=== PATIENT | female | born 2000 | race Caucasian/White ===

== ENCOUNTER 2023-08-09 07:40 | Emergency (ER) | payer SELFPAY ==
[2023-08-09 07:43] VITALS: BP 122/86
[2023-08-09] MEDS: TESSALON PERLES 200 MG PO (09:04)
[2023-08-09] MEDS: DUONEB 3 ML INH (09:05)
[2023-08-09] MEDS: DELTASONE 50 MG PO (09:05)
--- NOTE | 2023-08-09 09:24 | ED.GENMED ---
History of Present Illness
General
Chief Complaint: Cough
Source: patient
Exam Limitations: none
Time Seen by Provider: 08/09/23 08:41
Nursing documentation reviewed up to this point in time: agreed with
Travel History
Have you had any contact with someone who has COVID-19?: No
Do you have any symptoms of coronavirus? Fever > 100 degrees, chills, cough, shortness of breath, sore throat, loss of taste or smell, muscle aches, or headache?: No
History of Present Illness
History of Present Illness:
Patient presents to ED secondary to persistent cough with shortness of breath over the past 2 weeks. Patient has history of asthma but has run out of inhaler due to lack of insurance. Denies fever or chills. Denies nausea, vomiting, or diarrhea.
Patient currently works at daycare. Denies chest pain. Denies loss of appetite. Denies recent travel or surgery.
Review of Systems
Review of Systems
Allergies reviewed?: Yes
All Other Systems: ROS reviewed and negative except as documented in HPI and ROS
Constitutional: Reports no symptoms; Denies fever
EENT: Reports other (Nasal congestion)
Respiratory: Reports cough and trouble breathing
Cardiac: Reports no symptoms
ABD/GI: Reports no symptoms
: Reports no symptoms
Musculoskeletal: Reports no symptoms
Skin: Reports no symptoms
Neurological: Reports no symptoms
Phy Exam
Physical Exam
Physical Exam:
Physical Exam
General: no apparent distress, not acutely ill. afebrile
Head: nc/at. eomi
Neck: supple. no meningeal signs.
Heart: s1/s2 regular rate and rhythm, no murmur. equal radial pulses.
Lungs: no acute respiratory distress. diminished breath sound over right lower base with faint expiratory wheezing.
Abdomen: normal bowel sounds. not tender.
Neuro: alert and oriented. no focal neurological deficits
Skin: no rash
Psychiatric: well kept. interactive and cooperative
Extremities: no edema. no calf tenderness.
Course
Orders/Labs/Results
Orders:
Orders
08/09/23 08:50
Benzonatate [Tessalon Perles] 200 mg PO NOW STA
Ipratropium/Albuterol Sulfate [Duoneb] 3 ml INH R NOW ONE
Prednisone [Deltasone] 50 mg PO NOW STA
CR Chest - 2 Views Urgent
Comment:
Reason For Exam: cough/sob
08/09/23 09:04
COVID-19 Antigen Urgent
Source: Nasal Swab
Abnormal Lab Results
08/09/23
09:04
SARS-CoV-2 Antigen Positive A
(Negative)
Vital Signs
Initial and Last Documented VS:
Initial Vital Signs
Temp Pulse Resp BP Pulse Ox
98.4 F 104 18 122/86 98
08/09/23 07:43 08/09/23 07:43 08/09/23 07:43 08/09/23 07:43 08/09/23 07:43
Last Documented Vital Signs
Temp Pulse Resp BP Pulse Ox
98.4 F 92 20 119/85 98
08/09/23 07:43 08/09/23 10:05 08/09/23 10:05 08/09/23 10:05 08/09/23 10:05
MDM/Problems Addressed
MDM/Problems Addressed:
History and exam, along with COVID-19 testing, consistent with likely asthma exacerbation secondary to COVID-19 infection. Otherwise, patient is afebrile, hemodynamically stable, and is without acute respiratory distress. Patient will be treated
symptomatically with short course of prednisone as well as inhaler along with cough medication. Chest x-ray without any acute findings.
*Critical Care Note
Total Time (30-74mins, 75-104mins- exclusive of procedures): Not Applicable
ED Attending Note
-
Portions of this chart may have been created with voice recognition software.� Occasional wrong word or��sound alike� substitutions may have occurred due to the inherent limitations of voice recognition software.
Discharge Plan
Departure
Patient Disposition: Home (Routine Discharge)
Date of Disposition: 08/09/23
Time of Disposition: 10:24
Patient with high blood pressure during this ER visit?: Yes
Condition: Good
Covid-19: Confirmed COVID-19
Discharge Problem:
COVID-19, Asthma
Instructions: Asthma, Adult (DC), COVID-19 (DC)
Prescriptions:
New
albuterol sulfate [ProAir HFA] 90 mcg/actuation Hfa Aerosol Inhaler
2 puff INHALATION Q4HPRN PRN (Reason: shortness of breath) Qty: 8.5 0RF
prednisone 50 mg Tablet
50 mg PO DAILY Qty: 3 0RF
benzonatate 100 mg capsule
100 mg PO TID PRN (Reason: Cough) Qty: 20 0RF
Referrals:
[facility] [Outside]
NONE,* [Family Provider] -
Stand Alone Forms: Return to Work
Activity Restrictions/Additional Instructions:
As discussed, please follow-up with your primary care physician and/or referred medical clinic for reevaluation. Your prescription has been sent electronically to [facility] pharmacy in [place].
Interventions
Interventions:
*Risk Screen - Suicide Last Done: 08/09/23 09:30
*General Assessment Last Done: 08/09/23 09:30
*Neglect/Abuse Screening Last Done: 08/09/23 09:30
*ED COVID-19 Vaccine History Last Done: 08/09/23 09:30
*Nursing Disposition Last Done: 08/09/23 10:36
ED- Pulmonary Assessment Last Done: 08/09/23 09:30
Discharge Date and Time
Discharge Date/Time: 08/09/23 10:36
[2023-08-09 09:28] LABS: COVID-19 Antigen Positive (Negative)
[2023-08-09 10:05] VITALS: BP 119/85
== END 2023-08-09 10:36 | disposition home or self-care (01) ==
LOC: EMR 07:40
PROVIDERS: EMERGENCY PHYSICIAN Emergency Medicine
DX: U07.1 COVID-19 (principal); J45.909 Unspecified asthma, uncomplicated
CPT/HCPCS: 99283; 94640; 71046; 87811

== ENCOUNTER 2023-09-13 08:25 | Emergency (ER) | payer SELFPAY ==
[2023-09-13 08:33] VITALS: BP 144/105
--- NOTE | 2023-09-13 08:58 | ED.GENMED ---
History of Present Illness
General
Chief Complaint: Cough
Source: patient
Exam Limitations: none
Time Seen by Provider: 09/13/23 08:40
Travel History
Have you had any contact with someone who has COVID-19?: No
Do you have any symptoms of coronavirus? Fever > 100 degrees, chills, cough, shortness of breath, sore throat, loss of taste or smell, muscle aches, or headache?: No
History of Present Illness
History of Present Illness:
See MDM
Past History
Past History
ED Past Medical History: Asthma
Social History
Tobacco: Non-smoker
Alcohol: None
Phy Exam
Physical Exam
Physical Exam:
See MDM
Course
Orders/Labs/Results
Orders:
Orders
09/13/23 08:43
Dexamethasone Pf [Decadron] 10 mg PO NOW STA
Ipratropium/Albuterol Sulfate [Duoneb] 3 ml INH R NOW STA
Test Result ONCE
09/13/23 08:44
CR Chest - 2 Views Urgent
Comment:
Reason For Exam: SOB, cough
09/13/23 09:11
HCG, Urine Qualitative Screen Urgent
Date Specimen was Collected: 09/13/23
Time Specimen was Collected: 09:10
Urinalysis Reflex To Culture Urgent
Date Specimen was Collected: 09/13/23
Time Specimen was Collected: 09:10
Urine Microscopic Reflex Cult Urgent
Urine Culture Urgent
IRENE Source: U
Specimen Description:
Date Specimen was Collected: 09/13/23
Time Specimen was Collected: 09:10
09/13/23 10:28
Doxycycline [Vibramycin] 100 mg PO NOW STA
Abnormal Lab Results
09/13/23
09:11
Ur Occult Blood Reflex 1+ A
(Negative)
Urine RBC 3-6 A /HPF
(0-2)
Urine Bacteria (Reflex) Moderate A
(Negative)
Vital Signs
Initial and Last Documented VS:
Initial Vital Signs
Temp Pulse Resp BP Pulse Ox
98.1 F 77 18 144/105 98
09/13/23 08:33 09/13/23 08:33 09/13/23 08:33 09/13/23 08:33 09/13/23 08:33
Last Documented Vital Signs
Temp Pulse Resp BP Pulse Ox
98.1 F 77 18 144/105 98
09/13/23 08:33 09/13/23 08:33 09/13/23 08:33 09/13/23 08:33 09/13/23 08:33
MDM/Problems Addressed
Differential Diagnosis Includes:
HPI and MDM Narrative:
22-year-old female presenting with shortness of breath and cough. Symptoms have been ongoing since she was diagnosed with COVID 1 month ago. She does have a history of asthma which is well-controlled with albuterol as needed. Patient also
complaining of abdominal pain. She points to her suprapubic region. She denies urinary symptoms. Symptoms are worse when she coughs.
Given her symptoms, will obtain chest x-ray. Will obtain urinalysis. The abdominal pain is likely musculoskeletal pain referred from coughing. Her abdominal exam is very benign. Given duration of abdominal pain with how well-appearing she is,
doubt acute surgical or infectious pathology
Physical exam
General: Well appearing and non-toxic
HEENT: protecting airway
Neck: appears supple
CV: No evidence of cyanosis
Resp: No accessory muscle use. Mild expiratory wheezing
Abd: Non-distended. Mild suprapubic tenderness. No rebound
Extremities: No deformities
Neuro: alert
Psych: Normal affect
Skin: Intact
Problems Addressed including Acute and Chronic Conditions affecting care:
1. Shortness of breath
Acuity: acute
Prognosis: stable
Details: Likely asthma exacerbation exacerbated by viral infection. Will obtain chest x-ray. Patient given DuoNeb and Decadron
Updates
Radiology indicating possible right lower lobe pneumonia. Will start doxycycline
Differential Diagnosis (but not limited to): Asthma exacerbation, UTI, pneumonia
Testing considered: Pelvic ultrasound
Drug therapy (if applicable): OTC meds, please see d/c instruction regarding Rx drugs
Amount and/or Complexity of Data Reviewed
Clinical info obtained from: Patient
External data reviewed: N/A
Labs I independently reviewed (but not limited to): UA
Radiology: X-ray independently reviewed: Questionable right lower lobe pneumonia
Pulse Ox: not hypoxic
EKG independently reviewed: N/A
Bacteriologist Pharmaceutical: N/A
Critical Care: N/A
Risk of Complication:
Social Determinants of health: Good social support
Discussed with other providers: N/A
Escalation of Care includes Admit/Obs: After being observed in the Emergency Department, pt stable for discharge.
Occasional wrong word or 'sound a like' substitutions may have occurred due to the inherent limitations of voice recognition software. Read the chart carefully and recognize, using context, where substitutions have occurred.
*Critical Care Note
Total Time (30-74mins, 75-104mins- exclusive of procedures): Not Applicable
ED Attending Note
-
Portions of this chart may have been created with voice recognition software.� Occasional wrong word or��sound alike� substitutions may have occurred due to the inherent limitations of voice recognition software.
Discharge Plan
Departure
Patient Disposition: Home (Routine Discharge)
Date of Disposition: 09/13/23
Time of Disposition: 10:30
Patient with high blood pressure during this ER visit?: Yes
Discharge Problem:
PNA (pneumonia), Acute bronchitis
Instructions: Pneumonia, Adult (DC), BLOOD PRESSURE
Prescriptions:
New
doxycycline hyclate 100 mg capsule
100 mg PO BID Qty: 14 0RF
fluticasone propionate 110 mcg/actuation HFA aerosol inhaler
1 inh inhalation Q12H Qty: 12 0RF
famotidine [Pepcid] 20 mg tablet
20 mg PO DAILY Qty: 30 0RF
No Action
albuterol sulfate [ProAir HFA] 90 mcg/actuation Hfa Aerosol Inhaler
2 puff INHALATION Q4HPRN PRN (Reason: shortness of breath) Qty: 8.5 0RF
prednisone 50 mg Tablet
50 mg PO DAILY Qty: 3 0RF
benzonatate 100 mg capsule
100 mg PO TID PRN (Reason: Cough) Qty: 20 0RF
Referrals:
NONE,* [Family Provider] -
Stand Alone Forms: Return to Work
Activity Restrictions/Additional Instructions:
Please return for any worsening symptoms.
You may return at any time if you have further concerns.
Please follow up with your doctor at the first available appointment, preferably this week.
Thank you for choosing [facility].
Interventions
Interventions:
*Risk Screen - Suicide Last Done: 09/13/23 08:33
*General Assessment Last Done: 09/13/23 08:33
*Neglect/Abuse Screening Last Done: 09/13/23 08:33
[2023-09-13] MEDS: DUONEB 3 ML INH (09:13)
[2023-09-13] MEDS: DECADRON 10 MG PO (09:14)
[2023-09-13 09:25] LABS: Urine Albumin Negative (Neg - Trace); Urine Bilirubin Negative (Negative); Urine Character Clear (Clear); Urine Color Yellow; Urine Glucose Negative (Negative); Urine Ketone Negative (Negative); Urine Leukocyte Negative (Negative); Urine Nitrite Negative (Negative); Urine Occult Blood 1+ (Negative); Urine Specific Gravity 1.025 (<1.030); Urine Urobilinogen Negative (Neg - 1+)
[2023-09-13 09:33] LABS: Urine Squamous Cell >30 /LPF (Few)
[2023-09-13 09:36] LABS: Urine Bacteria Moderate (Negative)
[2023-09-13 09:48] LABS: HCG, Urine Qualitative Screen Negative
[2023-09-13 10:00] VITALS: BP 125/85
[2023-09-13] MEDS: VIBRAMYCIN 100 MG PO (10:34)
== END 2023-09-13 10:47 | disposition home or self-care (01) ==
LOC: EMR 08:25
PROVIDERS: EMERGENCY PHYSICIAN Student in an Organized Health Care Education/Training Program
DX: J18.9 Pneumonia, unspecified organism (principal); J20.9 Acute bronchitis, unspecified; R03.0 Elevated blood-pressure reading, without diagnosis of hypertension; J45.909 Unspecified asthma, uncomplicated
CPT/HCPCS: 99284; 94640; 71046; 81003; 81015; 81025; 87086

== ENCOUNTER 2023-10-04 08:25 | Emergency (ER) | payer SELFPAY ==
[2023-10-04 08:26] VITALS: BP 136/96
[2023-10-04 09:10] VITALS: BMI 30.4
--- NOTE | 2023-10-04 09:17 | ED.GENMED ---
History of Present Illness
General
Chief Complaint: Cold/Flu/URI Symptoms
Source: patient
Exam Limitations: none
Time Seen by Provider: 10/04/23 09:09
Travel History
Have you had any contact with someone who has COVID-19?: No
Do you have any symptoms of coronavirus? Fever > 100 degrees, chills, cough, shortness of breath, sore throat, loss of taste or smell, muscle aches, or headache?: No
History of Present Illness
History of Present Illness:
22-year-old female presents with chest pain shortness of breath and wheeze and cough. Occasionally she coughs up blood. She was here twice in the past 2 months had bronchitis and pneumonia and asthma. She was treated with antibiotics however
symptoms persist. She notes at times she feels that she has trouble completing a sentence. There is been no vomiting. No recent fever. No other complaints at this time
Past History
Past History
ED Past Medical History: Asthma
Social History
Tobacco: Non-smoker
Alcohol: None
Phy Exam
Physical Exam
Physical Exam:
General: Well-appearing female no acute respiratory distress
HEENT: Normocephalic atraumatic posterior pharynx without erythema neck is supple no adenopathy
Heart: Regular rate and rhythm no murmurs
Lungs: Wheeze upon inspiration rhonchi noted as well
Extremities: No cyanosis or edema
Skin: Warm no rash
Course
Orders/Labs/Results
Orders:
Orders
10/04/23 09:15
Ipratropium/Albuterol Sulfate [Duoneb] 3 ml INH R NOW ONE
10/04/23 09:16
CT Chest Pe Study Urgent
Comment:
Reason For Exam: sob, chest pain
Test Result ONCE
10/04/23 09:22
Complete Blood Count/With Diff Urgent
Comprehensive Metabolic Panel Urgent
HCG, Serum Qualitative Screen Urgent
10/04/23 11:07
Cefdinir [Omnicef] 300 mg PO NOW STA
Abnormal Lab Results
10/04/23
09:22
Creatinine 0.5 L mg/dL
(0.6-1.0)
10/04/23 09:22
10/04/23 09:22
Vital Signs
Initial and Last Documented VS:
Initial Vital Signs
Temp Pulse Resp BP Pulse Ox
97.9 F 100 18 136/96 100
10/04/23 08:26 10/04/23 08:26 10/04/23 08:26 10/04/23 08:26 10/04/23 08:26
Last Documented Vital Signs
Temp Pulse Resp BP Pulse Ox
97.9 F 88 19 125/92 99
10/04/23 08:26 10/04/23 11:09 10/04/23 11:09 10/04/23 11:09 10/04/23 11:09
MDM/Problems Addressed
Differential Diagnosis Includes:
Chest pain shortness of breath cough and wheeze. Consider recurrent asthma exacerbation versus PE versus recurrent pneumonia. Will try DuoNeb. Given hemoptysis and pleuritic pain, will order PE study.
*Critical Care Note
Total Time (30-74mins, 75-104mins- exclusive of procedures): Not Applicable
Update Note
Update Note:
CT is negative for pulmonary embolism but demonstrates pneumonia at the left base with surrounding bronchitis. Prior pneumonia on the right side is now resolved. Will treat with Omnicef and Zithromax. She is not hypoxic. White count is normal
with no respiratory distress. Penicillin is listed as an allergy on her and is nausea. She did receive a dose of Omnicef here and was observed for over 40 minutes and is without any symptoms.
ED Attending Note
-
Portions of this chart may have been created with voice recognition software.� Occasional wrong word or��sound alike� substitutions may have occurred due to the inherent limitations of voice recognition software.
Discharge Plan
Departure
Patient Disposition: Home (Routine Discharge)
Date of Disposition: 10/04/23
Time of Disposition: 11:54
Patient with high blood pressure during this ER visit?: No
Discharge Problem:
Pneumonia
Prescriptions:
New
cefdinir 300 mg capsule
300 mg PO BID Qty: 14 0RF
azithromycin [Zithromax] 250 mg tablet
250 mg PO DAILY Qty: 6 0RF
Rx Instructions:
Take 2 tablets on day 1. Then one tablet on days 2-5.
albuterol sulfate 2.5 mg /3 mL (0.083 %) solution for nebulization
2.5 mg inhalation QID PRN (Reason: bronchospasm) Qty: 75 0RF
No Action
albuterol sulfate [ProAir HFA] 90 mcg/actuation Hfa Aerosol Inhaler
2 puff INHALATION Q4HPRN PRN (Reason: shortness of breath) Qty: 8.5 0RF
prednisone 50 mg Tablet
50 mg PO DAILY Qty: 3 0RF
benzonatate 100 mg capsule
100 mg PO TID PRN (Reason: Cough) Qty: 20 0RF
doxycycline hyclate 100 mg capsule
100 mg PO BID Qty: 14 0RF
fluticasone propionate 110 mcg/actuation HFA aerosol inhaler
1 inh inhalation Q12H Qty: 12 0RF
famotidine [Pepcid] 20 mg tablet
20 mg PO DAILY Qty: 30 0RF
Referrals:
NONE,* [Family Provider] -
Activity Restrictions/Additional Instructions:
Take antibiotics as directed. Use nebulizer as needed for wheezing. Please return here for worsening symptoms otherwise follow-up with family
Interventions
Interventions:
*Risk Screen - Suicide Last Done: 10/04/23 09:10
*General Assessment Last Done: 10/04/23 09:10
*Neglect/Abuse Screening Last Done: 10/04/23 09:10
*ED COVID-19 Vaccine History Last Done: 10/04/23 09:10
ED- Pulmonary Assessment Last Done: 10/04/23 09:12
[2023-10-04] MEDS: DUONEB 3 ML INH (09:26)
[2023-10-04 09:30] LABS: % Basophils 0.7 % (0-2); % Eosinophils 2.4 % (0-6); % Immature Granulocytes 0.2 % (0-0.5); % Monocytes 6.5 % (1.7-9.3); % Neutrophils 63.2 % (42.2-75.2); Absolute Basophils 0.1 10^3/uL (0-0.2); Absolute Eosinophils 0.2 10^3/uL (0-0.7); Absolute Lymphocytes 2.3 10^3/uL (1.2-3.4); Absolute Monocytes 0.6 10^3/uL (0.1-0.6); Absolute Neutrophils 5.3 10^3/uL (1.4-6.5); Hematocrit 41.1 % (37.0-47.0); Hemoglobin 13.9 g/dL (12.0-16.0); Mean Corp Hgb Conc. 33.8 g/dL (33.0-37.0); Mean Corpuscular Hgb 29.8 pg (27.0-31.0); Nucleated Red Blood Cells % 0 %; Platelet Count 322 10^3/uL (130-400); Red Blood Cell Count 4.67 10^6/uL (4.20-5.40); Red Cell Dist. Width 11.8 % (11.5-14.5); White Blood Cell Count 8.4 10^3/uL (4.8-10.8)
[2023-10-04 09:40] LABS: HCG, Serum Qualitative Screen Negative
[2023-10-04 09:42] LABS: ALT (SGPT) 23 U/L (0-35); AST (SGOT) 25 U/L (14-36); Albumin 4.8 g/dl (3.5-5.0); Alkaline Phosphatase 91 U/L (38-126); Blood Urea Nitrogen 9 mg/dl (7-17); Carbon Dioxide 27 mmol/L (22-30); Chloride 104 mmol/L (98-107); Estimated Creatinine Clearance > 125 ml/min; Glucose 96 mg/dl (70-99); Potassium 4.2 mmol/L (3.5-5.1); Sodium 139 mmol/L (135-145); Total Bilirubin 0.9 mg/dl (0.2-1.3); Total Protein 8.2 g/dl (6.3-8.2); eGFR > 60.00
[2023-10-04 11:09] VITALS: BP 125/92
[2023-10-04] MEDS: OMNICEF 300 MG PO (11:15)
== END 2023-10-04 12:29 | disposition home or self-care (01) ==
LOC: EMR 08:25
PROVIDERS: Physician Assistant; EMERGENCY PHYSICIAN Emergency Medicine
DX: R07.89 Other chest pain (principal); J45.909 Unspecified asthma, uncomplicated; J18.9 Pneumonia, unspecified organism; Z86.16 Personal history of COVID-19
CPT/HCPCS: 99284; 71275; 80053; 84703; 85025; Q9967

== ENCOUNTER 2023-12-29 09:47 | Emergency (ER) | payer SELFPAY ==
[2023-12-29 09:49] VITALS: BP 154/96
[2023-12-29] MEDS: DECADRON 10 MG PO (10:28)
[2023-12-29] MEDS: DUONEB 3 ML INH (10:28)
--- NOTE | 2023-12-29 10:42 | ED.GENMED ---
History of Present Illness
General
Chief Complaint: Cough
Source: patient
Exam Limitations: none
Time Seen by Provider: 12/29/23 09:58
Nursing documentation reviewed up to this point in time: agreed with
Travel History
Have you had any contact with someone who has COVID-19?: No
Do you have any symptoms of coronavirus? Fever > 100 degrees, chills, cough, shortness of breath, sore throat, loss of taste or smell, muscle aches, or headache?: Yes
Symptoms:: cough
History of Present Illness
History of Present Illness:
23-year-old female past medical history of asthma presenting to the emergency department today with concerns of cough shortness of breath congestion ongoing over the past few weeks and not resolving using her inhaler at home without relief. Denies
any specific fevers chest pain. Had COVID a few months ago as well.
Past History
Past History
ED Past Medical History: Asthma
Social History
Tobacco: Non-smoker
Alcohol: None
Review of Systems
Review of Systems
Allergies reviewed?: Yes
All Other Systems: ROS reviewed and negative except as documented in HPI and ROS
Phy Exam
Physical Exam
Physical Exam:
GENERAL: Alert , in no apparent distress
EYE: pupils equal and reactive
NECK: Supple, no significant adenopathy.
ENT: o/p clr, mmm.
CARDIAC: Regular rate and rhythm .
LUNGS: Diffuse inspiratory and expiratory wheezing.
ABDOMEN: Soft, without focal tenderness, no r/g, no cvat
NEUROLOGICAL: Alert and oriented, no focal neuro deficits
SKIN: Warm and dry, skin intact.
MUSCULOSKELETAL: No edema, well perfused.
PSYCH: Normal and appropriate interaction.
Course
Orders/Labs/Results
Orders:
Orders
12/29/23 10:20
Dexamethasone [Decadron] 10 mg PO NOW STA
Ipratropium/Albuterol Sulfate [Duoneb] 3 ml INH R NOW ONE
Chest [CR Chest - 2 Views ] Urgent
Comment:
Reason For Exam: cough
Vital Signs
Initial and Last Documented VS:
Initial Vital Signs
Temp Pulse Resp BP Pulse Ox
98.3 F 99 18 154/96 99
12/29/23 09:49 12/29/23 09:49 12/29/23 09:49 12/29/23 09:49 12/29/23 09:49
Last Documented Vital Signs
Temp Pulse Resp BP Pulse Ox
98.3 F 99 18 154/96 99
12/29/23 09:49 12/29/23 09:49 12/29/23 09:49 12/29/23 09:49 12/29/23 09:49
MDM/Problems Addressed
MDM/Problems Addressed:
23-year-old female presenting to the emergency department today with concerns of cough shortness of breath wheeze over the past few weeks. Has not been on steroids recently but did have intermittent symptoms since having COVID a few months ago.
Here she has diffuse inspiratory expiratory wheeze but good pulse ox of 99% and normal respiratory rate. She was able to speak with full sentences. Patient claims symptoms improved after receiving steroids and DuoNeb. X-ray without signs of
emergent pathology or pneumonia. Patient appears stable for discharge return precautions given.
*Critical Care Note
Total Time (30-74mins, 75-104mins- exclusive of procedures): Not Applicable
ED Attending Note
-
Portions of this chart may have been created with voice recognition software.� Occasional wrong word or��sound alike� substitutions may have occurred due to the inherent limitations of voice recognition software.
Discharge Plan
Departure
Patient Disposition: Home (Routine Discharge)
Date of Disposition: 12/29/23
Time of Disposition: 12:41
Patient with high blood pressure during this ER visit?: No
Condition: Good
Covid-19: Not Applicable
Discharge Problem:
Asthma exacerbation
Instructions: Asthma, Adult ED
Prescriptions:
New
prednisone 20 mg tablet
40 mg PO DAILY 4 Days Qty: 8 0RF
albuterol sulfate 2.5 mg /3 mL (0.083 %) solution for nebulization
2.5 mg inhalation Q4H PRN (Reason: bronchospasm) Qty: 90 0RF
No Action
albuterol sulfate [ProAir HFA] 90 mcg/actuation Hfa Aerosol Inhaler
2 puff INHALATION Q4HPRN PRN (Reason: shortness of breath) Qty: 8.5 0RF
prednisone 50 mg Tablet
50 mg PO DAILY Qty: 3 0RF
benzonatate 100 mg capsule
100 mg PO TID PRN (Reason: Cough) Qty: 20 0RF
doxycycline hyclate 100 mg capsule
100 mg PO BID Qty: 14 0RF
fluticasone propionate 110 mcg/actuation HFA aerosol inhaler
1 inh inhalation Q12H Qty: 12 0RF
famotidine [Pepcid] 20 mg tablet
20 mg PO DAILY Qty: 30 0RF
cefdinir 300 mg capsule
300 mg PO BID Qty: 14 0RF
azithromycin [Zithromax] 250 mg tablet
250 mg PO DAILY Qty: 6 0RF
Rx Instructions:
Take 2 tablets on day 1. Then one tablet on days 2-5.
albuterol sulfate 2.5 mg /3 mL (0.083 %) solution for nebulization
2.5 mg inhalation QID PRN (Reason: bronchospasm) Qty: 75 0RF
Referrals:
NONE,* [Family Provider] -
Activity Restrictions/Additional Instructions:
You came to the emergency department today with concerns of continued breathing issues. You are found to have wheezing. Please take the steroid as prescribed and follow close with your primary care doctor. Return to the emergency department for
any worsening, new or concerning symptoms.
Interventions
Interventions:
*Risk Screen - Suicide Last Done: 12/29/23 09:49
*General Assessment Last Done: 12/29/23 09:49
*Neglect/Abuse Screening Last Done: 12/29/23 09:49
*ED COVID-19 Vaccine History Last Done: 12/29/23 10:33
ED- Pulmonary Assessment Last Done: 12/29/23 10:32
Discharge Date and Time
Print Language: BURKIN[place]
[2023-12-29 12:35] VITALS: BP 149/85
== END 2023-12-29 13:06 | disposition home or self-care (01) ==
LOC: EMR 09:47
PROVIDERS: EMERGENCY PHYSICIAN Emergency Medicine
DX: J45.901 Unspecified asthma with (acute) exacerbation (principal)
CPT/HCPCS: 99283; 94640; 71046

== ENCOUNTER 2024-05-01 07:46 | Emergency (ER) | payer SELFPAY ==
[2024-05-01 07:50] VITALS: BP 134/88
--- NOTE | 2024-05-01 09:27 | ED.GENMED ---
History of Present Illness
General
Chief Complaint: Cough
Source: patient
Exam Limitations: none
Time Seen by Provider: 05/01/24 09:14
History of Present Illness
History of Present Illness:
23-year-old female presents with difficulty breathing and cough over the past 2 weeks. She notes dark sputum. She notes a history of pneumonia and she is concerned she may have it again. No measurable fever. No recent travel or surgery. No leg
swelling or calf pain.
Past History
Past History
ED Past Medical History: Asthma
Social History
Tobacco: Non-smoker
Alcohol: None
Phy Exam
Physical Exam
Physical Exam:
General: Well-appearing female no acute respiratory distress
HEENT: Normocephalic atraumatic
Heart: Regular rate and rhythm
Lungs: Clear no wheeze or rales
Extremities: No cyanosis or edema
Skin: Warm no rash
Course
Orders/Labs/Results
Orders:
Orders
05/01/24 08:25
CR Chest - 2 Views Urgent
Comment:
Reason For Exam: cough
05/01/24 09:17
COVID-19 Antigen Urgent
Source: Nasal Swab
Influenza A+B Rapid Molecular Urgent
IRENE Source: Nasal Swab
Specimen Description:
Vital Signs
Initial and Last Documented VS:
Initial Vital Signs
Pulse Resp BP Pulse Ox
88 18 134/88 94
05/01/24 07:50 05/01/24 07:50 05/01/24 07:50 05/01/24 07:50
Last Documented Vital Signs
Pulse Resp BP Pulse Ox
88 18 134/88 94
05/01/24 07:50 05/01/24 07:50 05/01/24 07:50 05/01/24 07:50
MDM/Problems Addressed
Differential Diagnosis Includes:
cough. Consider bronchitis versus pneumonia. No symptoms to suggest PE vital signs are stable no recent travel or surgery.
Chest x-ray pending. COVID and flu test pending.
*Critical Care Note
Total Time (30-74mins, 75-104mins- exclusive of procedures): Not Applicable
Update Note
Update Note:
Chest x-ray is negative flu and COVID-negative. Suspect underlying bronchitis. Symptoms been ongoing for 2 weeks. Will recommend steroid course and doxycycline to cover. Stable for discharge
ED Attending Note
-
Portions of this chart may have been created with voice recognition software.� Occasional wrong word or��sound alike� substitutions may have occurred due to the inherent limitations of voice recognition software.
Discharge Plan
Departure
Patient Disposition: Home (Routine Discharge)
Date of Disposition: 05/01/24
Time of Disposition: 11:21
Patient with high blood pressure during this ER visit?: No
Discharge Problem:
Acute bronchitis
Instructions: Shortness of Breath (Dyspnea) (DC)
Prescriptions:
New
doxycycline hyclate 100 mg capsule
100 mg PO BID Qty: 14 0RF
prednisone 20 mg tablet
40 mg PO DAILY 5 Days Qty: 10 0RF
No Action
albuterol sulfate [ProAir HFA] 90 mcg/actuation Hfa Aerosol Inhaler
2 puff INHALATION Q4HPRN PRN (Reason: shortness of breath) Qty: 8.5 0RF
prednisone 50 mg Tablet
50 mg PO DAILY Qty: 3 0RF
benzonatate 100 mg capsule
100 mg PO TID PRN (Reason: Cough) Qty: 20 0RF
doxycycline hyclate 100 mg capsule
100 mg PO BID Qty: 14 0RF
fluticasone propionate 110 mcg/actuation HFA aerosol inhaler
1 inh inhalation Q12H Qty: 12 0RF
famotidine [Pepcid] 20 mg tablet
20 mg PO DAILY Qty: 30 0RF
cefdinir 300 mg capsule
300 mg PO BID Qty: 14 0RF
azithromycin [Zithromax] 250 mg tablet
250 mg PO DAILY Qty: 6 0RF
Rx Instructions:
Take 2 tablets on day 1. Then one tablet on days 2-5.
albuterol sulfate 2.5 mg /3 mL (0.083 %) solution for nebulization
2.5 mg inhalation QID PRN (Reason: bronchospasm) Qty: 75 0RF
prednisone 20 mg tablet
40 mg PO DAILY 4 Days Qty: 8 0RF
albuterol sulfate 2.5 mg /3 mL (0.083 %) solution for nebulization
2.5 mg inhalation Q4H PRN (Reason: bronchospasm) Qty: 90 0RF
Referrals:
NONE,* [Family Provider] -
Activity Restrictions/Additional Instructions:
Take antibiotics as directed use steroid as directed. Return here if worse otherwise follow-up with your doctor
Interventions
Interventions:
*Risk Screen - Suicide Last Done: 05/01/24 07:49
*General Assessment Last Done: 05/01/24 07:49
*Neglect/Abuse Screening Last Done: 05/01/24 07:49
ED- Cardiac Assessment Last Done: 05/01/24 09:30
ED- Pulmonary Assessment Last Done: 05/01/24 09:30
Discharge Date and Time
Print Language: KHMER
[2024-05-01 09:46] LABS: COVID-19 Antigen Negative (Negative)
== END 2024-05-01 11:33 | disposition home or self-care (01) ==
LOC: EMR 07:46
PROVIDERS: Student in an Organized Health Care Education/Training Program; EMERGENCY PHYSICIAN Emergency Medicine
DX: J20.9 Acute bronchitis, unspecified (principal); J45.909 Unspecified asthma, uncomplicated
CPT/HCPCS: 99284; 71046; 87502; 87811

== ENCOUNTER 2024-06-08 07:28 | Emergency (ER) | payer SELFPAY ==
[2024-06-08 07:30] VITALS: BP 149/89
[2024-06-08 07:33] LABS: Glucose - Point of Care 101 mg/dl (70-99)
--- NOTE | 2024-06-08 08:01 | ED.GENMED ---
History of Present Illness
General
Chief Complaint: Dizziness
Source: patient
Exam Limitations: none
Time Seen by Provider: 06/08/24 07:50
History of Present Illness
History of Present Illness:
23-year-old female presents with onset of dizziness for the last 4 days. She describes it as a room spinning sensation. This seems to be made worse with changes position. Worsen when she bent over to pick something up. This caused her to fall
earlier in the week. She was here about a month ago for bronchitis. She notes a persisting cough. No chest pain. No vision loss or double vision. She denies any unilateral numbness or weakness. She is nauseous.
Past History
Past History
ED Past Medical History: Asthma
Social History
Tobacco: Non-smoker
Alcohol: None
Phy Exam
Physical Exam
Physical Exam:
General: Well-appearing female no acute respiratory distress
HEENT: Normocephalic atraumatic TMs normal pupils equal round reactive to light no obvious nystagmus
Heart: Regular rate and rhythm
Lungs: Clear no obvious wheeze
Neurologic exam: Alert and oriented no facial asymmetry. Mikey-Hallpike is positive to reproduce some dizziness turning to the left. Good muscle tone
Extremities: No cyanosis or edema
Skin: Warm no rash
Course
Orders/Labs/Results
Orders:
Orders
06/08/24 07:34
Electrocardiogram (*1) Urgent
Reason for Study: Vertigo / Dizzy
EKG- Treatment ONCE
06/08/24 07:58
PT Consult [Pt Eval And Treat] Urgent
Treatment: vestibular eval
Activity Level: Ambulate
06/08/24 08:02
Test Result ONCE
06/08/24 08:04
0.9% Sodium Chloride 1000 ml [Nss] 1,000 ml IV BOLUS
06/08/24 08:10
CT Head W/o Iv Contrast Urgent
Comment:
Reason For Exam: fall, head injury, dizzy
06/08/24 08:16
Complete Blood Count/With Diff Urgent
Comprehensive Metabolic Panel Urgent
HCG, Serum Qualitative Screen Urgent
TSH Reflex To Free T4 Urgent
06/08/24 10:41
Meclizine [Antivert] 25 mg PO NOW STA
Abnormal Lab Results
06/08/24 06/08/24
07:31 08:16
Carbon Dioxide 21 L mmol/L
(22-30)
Creatinine 0.5 L mg/dL
(0.6-1.0)
POC Glucose 101 H mg/dl
(70-99)
06/08/24 08:16
06/08/24 08:16
Vital Signs
Initial and Last Documented VS:
Initial Vital Signs
Temp Pulse Resp BP Pulse Ox
98.4 F 99 16 149/89 100
06/08/24 07:30 06/08/24 07:30 06/08/24 07:30 06/08/24 07:30 06/08/24 07:30
Last Documented Vital Signs
Temp Pulse Resp BP Pulse Ox
98.4 F 70 16 126/79 99
06/08/24 07:30 06/08/24 10:00 06/08/24 10:00 06/08/24 08:34 06/08/24 08:30
MDM/Problems Addressed
Differential Diagnosis Includes:
Patient here with dizziness. Question vertigo versus electrolyte abnormality versus arrhythmia
Will check labs. Fluids ordered. Will consult physical therapy for vestibular eval
*Critical Care Note
Total Time (30-74mins, 75-104mins- exclusive of procedures): Not Applicable
Update Note
Update Note:
Patient seen by physical therapy. She was hydrated. Labs reviewed without significant finding. Suspect possible underlying vertigo. Will prescribe meclizine. Stable discharge with vestibular rehab follow-up.
I did order CT of the head secondary to the fall and dizziness this was negative.
ED Attending Note
-
Portions of this chart may have been created with voice recognition software.� Occasional wrong word or��sound alike� substitutions may have occurred due to the inherent limitations of voice recognition software.
Discharge Plan
Departure
Patient Disposition: Home (Routine Discharge)
Date of Disposition: 06/08/24
Time of Disposition: 11:42
Patient with high blood pressure during this ER visit?: No
Discharge Problem:
Dizziness
Instructions: Dizziness
Prescriptions:
New
meclizine 25 mg tablet
25 mg PO TID PRN (Reason: dizziness) Qty: 10 0RF
No Action
albuterol sulfate [ProAir HFA] 90 mcg/actuation Hfa Aerosol Inhaler
2 puff INHALATION Q4HPRN PRN (Reason: shortness of breath) Qty: 8.5 0RF
prednisone 50 mg Tablet
50 mg PO DAILY Qty: 3 0RF
benzonatate 100 mg capsule
100 mg PO TID PRN (Reason: Cough) Qty: 20 0RF
doxycycline hyclate 100 mg capsule
100 mg PO BID Qty: 14 0RF
fluticasone propionate 110 mcg/actuation HFA aerosol inhaler
1 inh inhalation Q12H Qty: 12 0RF
famotidine [Pepcid] 20 mg tablet
20 mg PO DAILY Qty: 30 0RF
cefdinir 300 mg capsule
300 mg PO BID Qty: 14 0RF
azithromycin [Zithromax] 250 mg tablet
250 mg PO DAILY Qty: 6 0RF
Rx Instructions:
Take 2 tablets on day 1. Then one tablet on days 2-5.
albuterol sulfate 2.5 mg /3 mL (0.083 %) solution for nebulization
2.5 mg inhalation QID PRN (Reason: bronchospasm) Qty: 75 0RF
prednisone 20 mg tablet
40 mg PO DAILY 4 Days Qty: 8 0RF
albuterol sulfate 2.5 mg /3 mL (0.083 %) solution for nebulization
2.5 mg inhalation Q4H PRN (Reason: bronchospasm) Qty: 90 0RF
doxycycline hyclate 100 mg capsule
100 mg PO BID Qty: 14 0RF
prednisone 20 mg tablet
40 mg PO DAILY 5 Days Qty: 10 0RF
Referrals:
NONE,* [Family Provider] -
Activity Restrictions/Additional Instructions:
Drink clear fluids. Use meclizine if needed for dizziness. Follow-up with vestibular rehab. Return if worse
Interventions
Interventions:
*Risk Screen - Suicide Last Done: 06/08/24 07:33
*General Assessment Last Done: 06/08/24 07:30
*Neglect/Abuse Screening Last Done: 06/08/24 07:30
*ED COVID-19 Vaccine History Last Done: 06/08/24 08:06
ED- Neurological Assessment Last Done: 06/08/24 08:32
ED Swallowing Screen Last Done: 06/08/24 11:28
Discharge Date and Time
Print Language: BAHAMIAN
[2024-06-08 08:05] VITALS: BMI 32.3
[2024-06-08] MEDS: NSS 1000 IV (08:17)
[2024-06-08 08:26] LABS: % Basophils 1.1 % (0-2); % Eosinophils 2.8 % (0-6); % Immature Granulocytes 0.2 % (0-0.5); % Lymphocytes 33.2 % (20.5-51.1); % Monocytes 6.3 % (1.7-9.3); % Neutrophils 56.4 % (42.2-75.2); Absolute Basophils 0.1 10^3/uL (0-0.2); Absolute Eosinophils 0.2 10^3/uL (0-0.7); Absolute Lymphocytes 2.2 10^3/uL (1.2-3.4); Absolute Monocytes 0.4 10^3/uL (0.1-0.6); Absolute Neutrophils 3.7 10^3/uL (1.4-6.5); Hematocrit 42.6 % (37.0-47.0); Hemoglobin 14.2 g/dL (12.0-16.0); Mean Corp Hgb Conc. 33.3 g/dL (33.0-37.0); Mean Corpuscular Hgb 30.1 pg (27.0-31.0); Mean Corpuscular Volume 90.4 fL (81.0-99.0); Mean Platelet Volume 10.3 fL (7.4-10.4); Nucleated Red Blood Cells % 0 %; Platelet Count 308 10^3/uL (130-400); Red Blood Cell Count 4.71 10^6/uL (4.20-5.40); Red Cell Dist. Width 11.7 % (11.5-14.5); White Blood Cell Count 6.5 10^3/uL (4.8-10.8)
[2024-06-08 08:34] VITALS: BP 126/79
[2024-06-08 08:47] LABS: HCG, Serum Qualitative Screen Negative
[2024-06-08 08:52] LABS: ALT (SGPT) 21 U/L (0-35); AST (SGOT) 23 U/L (14-36); Albumin 4.6 g/dl (3.5-5.0); Alkaline Phosphatase 69 U/L (38-126); Blood Urea Nitrogen 12 mg/dl (7-17); Carbon Dioxide 21 mmol/L (22-30); Chloride 106 mmol/L (98-107); Estimated Creatinine Clearance > 125 ml/min; Glucose 94 mg/dl (70-99); Potassium 4.3 mmol/L (3.5-5.1); Sodium 140 mmol/L (135-145); Total Bilirubin 0.5 mg/dl (0.2-1.3); Total Protein 7.5 g/dl (6.3-8.2); eGFR > 60.00
[2024-06-08 09:04] VITALS: BP 127/68
[2024-06-08 09:21] LABS: TSH Reflex To Free T4 1.47 uIU/ml (0.47-4.68)
[2024-06-08] MEDS: ANTIVERT 25 MG PO (11:14)
== END 2024-06-08 12:11 | disposition home or self-care (01) ==
LOC: EMR 07:28
PROVIDERS: Physician Assistant; EMERGENCY PHYSICIAN Emergency Medicine
DX: R42 Dizziness and giddiness (principal); J45.909 Unspecified asthma, uncomplicated
CPT/HCPCS: 96360; 99284; 70450; 80053; 82962; 84443; 84703; 85025; 93005

== ENCOUNTER 2024-08-01 10:06 | Emergency (ER) | payer SELFPAY ==
[2024-08-01 10:17] VITALS: BP 134/79
[2024-08-01 10:41] LABS: % Basophils 0.8 % (0-2); % Eosinophils 1.9 % (0-6); % Immature Granulocytes 0.4 % (0-0.5); % Lymphocytes 31.2 % (20.5-51.1); % Monocytes 6.6 % (1.7-9.3); % Neutrophils 59.1 % (42.2-75.2); Absolute Basophils 0.1 10^3/uL (0-0.2); Absolute Eosinophils 0.1 10^3/uL (0-0.7); Absolute Lymphocytes 2.3 10^3/uL (1.2-3.4); Absolute Monocytes 0.5 10^3/uL (0.1-0.6); Absolute Neutrophils 4.3 10^3/uL (1.4-6.5); Hematocrit 40.3 % (37.0-47.0); Hemoglobin 13.8 g/dL (12.0-16.0); Mean Corp Hgb Conc. 34.2 g/dL (33.0-37.0); Mean Corpuscular Hgb 30.2 pg (27.0-31.0); Mean Corpuscular Volume 88.2 fL (81.0-99.0); Mean Platelet Volume 10.1 fL (7.4-10.4); Nucleated Red Blood Cells % 0 %; Platelet Count 309 10^3/uL (130-400); Red Blood Cell Count 4.57 10^6/uL (4.20-5.40); Red Cell Dist. Width 11.9 % (11.5-14.5); White Blood Cell Count 7.2 10^3/uL (4.8-10.8)
[2024-08-01 10:41] LABS: Urine Albumin Negative (Neg - Trace); Urine Bilirubin Negative (Negative); Urine Character Clear (Clear); Urine Color Yellow; Urine Glucose Negative (Negative); Urine Ketone Negative (Negative); Urine Leukocyte Trace (Negative); Urine Nitrite Negative (Negative); Urine Occult Blood Negative (Negative); Urine Urobilinogen Negative (Neg - 1+)
[2024-08-01 10:53] LABS: Urine Squamous Cell >30 /LPF (Few)
[2024-08-01 10:55] LABS: Urine Red Blood Cell 0-2 /HPF (0-2); Urine Yeast Few (Negative)
[2024-08-01 10:59] LABS: ALT (SGPT) 18 U/L (0-35); AST (SGOT) 20 U/L (14-36); Albumin 4.7 g/dl (3.5-5.0); Alkaline Phosphatase 67 U/L (38-126); Blood Urea Nitrogen 8 mg/dl (7-17); Calcium 9.3 mg/dl (8.4-10.2); Carbon Dioxide 20 mmol/L (22-30); Chloride 104 mmol/L (98-107); Glucose 100 mg/dl (70-99); Potassium 3.9 mmol/L (3.5-5.1); Sodium 138 mmol/L (135-145); Total Bilirubin 0.7 mg/dl (0.2-1.3); Total Protein 7.5 g/dl (6.3-8.2); eGFR > 60.00
--- NOTE | 2024-08-01 13:27 | ED.GENMED ---
History of Present Illness
General
Chief Complaint: Problems
Source: patient
Time Seen by Provider: 08/01/24 12:20
History of Present Illness
History of Present Illness:
23-year-old female with past medical history migraines, G1, P0 presenting to the ER for evaluation of lower abdominal discomfort that has been gradually worsening over the last 4 days but present for the last 1 to 2 weeks, tested positive for
and was able to make an appointment with her LONG TERM CARE PHARMACIST on August 15 but due to the worsening pain decided to come to the ER today to ensure no other complications. Denies any vaginal bleeding, bowel changes or urinary symptoms. She does
endorse some nausea and has been to an [id number] antinausea medication with minimal relief.
Past History
Past History
ED Past Medical History: Asthma and Other (Migraine)
ED Past Surgical History: None
Social History
Tobacco: Non-smoker
Alcohol: None
Drug: None
Personal: Single
Living: with family
Review of Systems
Review of Systems
All Other Systems: ROS reviewed and negative except as documented in HPI and ROS
Phy Exam
Physical Exam
Physical Exam:
GENERAL: Alert , in no apparent distress
EYE: clear conjunctiva b/l
HEAD: NCAT
ENT: mmm.
CARDIAC: Regular rate and rhythm .
LUNGS: Clear breath sounds bilaterally, no acute respiratory distress, no wheezes/rales/rhonchi
ABDOMEN: Soft, without focal tenderness, no r/g, no cvat
NEUROLOGICAL: Alert and oriented
SKIN: Warm and dry, skin intact.
MUSCULOSKELETAL: well perfused.
PSYCH: Normal and appropriate interaction.
Scores
Heart Failure Risk
Heart Failure Risk Score: Not Applicable
Heart Score for Chest Pain Patients
STEMI patient?: Not applicable
Withdrawal Assessment of Alcohol
Withdrawal Assessment Completed?: Not applicable
Course
Orders/Labs/Results
Orders:
Orders
08/01/24 10:30
Type+Screen Urgent
Complete Blood Count/With Diff Urgent
Comprehensive Metabolic Panel Urgent
HCG, Beta Quantitative [Beta HCG Quantitative] Urgent
Is this a screen?: No
08/01/24 10:32
Urinalysis Reflex To Culture Urgent
Date Specimen was Collected: 08/01/24
Time Specimen was Collected: 10:20
Urine Microscopic Reflex Cult Urgent
08/01/24 12:21
US W Transvaginal Urgent
Reason For Exam: preg, lower abd pain
Abnormal Lab Results
08/01/24 08/01/24
10:30 10:32
Carbon Dioxide 20 L mmol/L
(22-30)
Creatinine 0.5 L mg/dL
(0.6-1.0)
Glucose 100 H mg/dl
(70-99)
Leukocyte Esterase Rfl Trace A
(Negative)
Urine Yeast Few A
(Negative)
08/01/24 10:30
08/01/24 10:30
Vital Signs
Initial and Last Documented VS:
Initial Vital Signs
Temp Pulse Resp BP Pulse Ox
98.0 F 95 16 134/79 98
08/01/24 10:17 08/01/24 10:17 08/01/24 10:17 08/01/24 10:17 08/01/24 10:17
Last Documented Vital Signs
Temp Pulse Resp BP Pulse Ox
98.0 F 95 16 134/79 98
08/01/24 10:17 08/01/24 10:17 08/01/24 14:00 08/01/24 10:17 08/01/24 10:17
Information
Weeks gestation: Weeks: (6w5d)
Location: Location: ([facility])
MDM/Problems Addressed
Differential Diagnosis Includes:
Lower abdominal pain in , ectopic , miscarriage
MDM/Problems Addressed:
23-year-old female presenting to the emergency department for evaluation of lower abdominal pain in the setting of recently finding out she is . G1, P0. Patient is in no acute distress, abdominal exam reassuring. Will check labs and
ultrasound. Disposition pending.
*Radiology
Radiology exam reviewed: radiology read reviewed
*Pulse Oximetry
Patient hypoxic: no
*Critical Care Note
Total Time (30-74mins, 75-104mins- exclusive of procedures): Not Applicable
Patient Management
Escalation/DeEscalation of care consider admission/obs:
Ultrasound shows a single live [facility] at 6 weeks and 5 days. No signs to suggest ectopic . Patient tolerating p.o. here. Stable for discharge home and will follow-up with LONG TERM CARE PHARMACIST as she has scheduled.
ED Attending Note
-
Portions of this chart may have been created with voice recognition software.� Occasional wrong word or��sound alike� substitutions may have occurred due to the inherent limitations of voice recognition software.
Discharge Plan
Departure
Patient Disposition: Home (Routine Discharge)
Date of Disposition: 08/01/24
Time of Disposition: 15:05
Patient with high blood pressure during this ER visit?: No
Discharge Problem:
Abdominal pain in
Instructions: symptoms
Prescriptions:
No Action
albuterol sulfate [ProAir HFA] 90 mcg/actuation Hfa Aerosol Inhaler
2 puff INHALATION Q4HPRN PRN (Reason: shortness of breath) Qty: 8.5 0RF
prednisone 50 mg Tablet
50 mg PO DAILY Qty: 3 0RF
benzonatate 100 mg capsule
100 mg PO TID PRN (Reason: Cough) Qty: 20 0RF
doxycycline hyclate 100 mg capsule
100 mg PO BID Qty: 14 0RF
fluticasone propionate 110 mcg/actuation HFA aerosol inhaler
1 inh inhalation Q12H Qty: 12 0RF
famotidine [Pepcid] 20 mg tablet
20 mg PO DAILY Qty: 30 0RF
cefdinir 300 mg capsule
300 mg PO BID Qty: 14 0RF
azithromycin [Zithromax] 250 mg tablet
250 mg PO DAILY Qty: 6 0RF
Rx Instructions:
Take 2 tablets on day 1. Then one tablet on days 2-5.
albuterol sulfate 2.5 mg /3 mL (0.083 %) solution for nebulization
2.5 mg inhalation QID PRN (Reason: bronchospasm) Qty: 75 0RF
prednisone 20 mg tablet
40 mg PO DAILY 4 Days Qty: 8 0RF
albuterol sulfate 2.5 mg /3 mL (0.083 %) solution for nebulization
2.5 mg inhalation Q4H PRN (Reason: bronchospasm) Qty: 90 0RF
doxycycline hyclate 100 mg capsule
100 mg PO BID Qty: 14 0RF
prednisone 20 mg tablet
40 mg PO DAILY 5 Days Qty: 10 0RF
meclizine 25 mg tablet
25 mg PO TID PRN (Reason: dizziness) Qty: 10 0RF
Referrals:
NONE,* [Family Provider] -
Interventions
Interventions:
*Risk Screen - Suicide Last Done: 08/01/24 10:17
*General Assessment Last Done: 08/01/24 13:05
*Neglect/Abuse Screening Last Done: 08/01/24 10:17
ED- Fall Risk Assessment Last Done: 08/01/24 13:04
*Nursing Disposition Last Done: 08/01/24 15:10
ED-Female Genitourinary Assessment Last Done: 08/01/24 13:04
Discharge Date and Time
Discharge Date/Time: 08/01/24 15:10
Print Language: [place]IZ[place]
== END 2024-08-01 15:10 | disposition home or self-care (01) ==
LOC: EMR 10:06
PROVIDERS: Emergency Medicine; EMERGENCY PHYSICIAN Emergency Medicine
DX: O26.891 Other specified pregnancy related conditions, first trimester (principal); R10.30 Lower abdominal pain, unspecified; O99.511 Diseases of the respiratory system complicating pregnancy, first trimester; J45.909 Unspecified asthma, uncomplicated; Z3A.01 Less than 8 weeks gestation of pregnancy
CPT/HCPCS: 99284; 76801; 76817; 80053; 81003; 81015; 84702; 85025; 86850; 86900; 86901